=== PATIENT | male | born 1980 ===

== ENCOUNTER 2016-06-29 10:34 | Emergency (ER) | payer OTHER ==
[2016-06-29 10:41] VITALS: BP 114/65; PULSE 99; TEMP 98; O2SAT 98; BMI 31.8
--- NOTE | 2016-06-29 11:07 | ED PDOC ---
HPI: Eye Injury/Pain Time Seen by Provider: 06/29/16 10:55 Chief Complaint (Nursing): Eye Problem Chief Complaint (Provider): right eye irritation History Per: Patient History/Exam Limitations: no limitations Onset/Duration Of Symptoms: Days (x 7) Current Symptoms Are (Timing): Still Present Injury To Eye?: No Wears Contact Lens?: No Associated Symptoms: Itching. denies: Decreased Vision, Swelling, FB Sensation , Discharge From Eye Additional Complaint(s): Patient is a 35 year old male, with no previous medical history, who presents to the ED with complaints of right eye irritation ongoing for the past week. Pt reports eye feels itchy. Pt denies any use of contact lenses, self medicating to aleviate symptoms, trauma to the eye, fever, changes in vision or discharge. Pt states left eye is asymptomatic. PMD: none provided Past Medical History Reviewed: Historical Data Vital Signs: Last Vital Signs Temp 98 F 06/29/16 10:40 Pulse 99 H 06/29/16 10:40 Resp BP 114/65 06/29/16 10:40 Pulse Ox 98 06/29/16 10:40 - Medical History PMH: No Chronic Diseases - Surgical History Surgical History: No Surg Hx - Family History Family History: States: Diabetes - Social History Current smoker - smoking cessation education provided: Yes Alcohol: Social Drugs: Denies - Home Medications Home Medications: Ambulatory Orders Medication Instructions Recorded Polymyxin B Sulf/Trimethoprim 2 drop OD QID #1 bottle 06/29/16 [Polymyxin B-Tmp Eye Drops] - Allergies Allergies/Adverse Reactions: Allergies Allergy/AdvReac Type Severity Reaction Status Date / Time No Known Allergies Allergy Verified 06/29/16 10:49 Review of Systems ROS Statement: Except As Marked, All Systems Reviewed And Found Negative Constitutional: Negative for: Fever, Chills Eyes: Positive for: Redness (red eye), Other (right eye itchy ). Negative for: Vision Change, Eyelid Inflammation Physical Exam - Reviewed Nursing Documentation Reviewed: Yes Vital Signs Reviewed: Yes - Physical Exam Appears: Positive for: Well, Non-toxic, No Acute Distress Eye Exam: Positive for: EOMI, PERRL, Conjunctival injection (right eye mildly. left eye within normal limits ). Negative for: Periorbital swelling, Periorbital tenderness Cardiovascular/Chest: Positive for: Regular Rate, Rhythm Respiratory: Positive for: Normal Breath Sounds Neurologic/Psych: Positive for: Alert, Oriented - ECG O2 Sat by Pulse Oximetry: 98 (RA) Pulse Ox Interpretation: Normal Medical Decision Making Medical Decision Making: Initial Impression: Conjunctivitis Initial Plan: * physical exam * disposition Upon provider evaluation patient is medically stable, and requires no further treatment in the ED at this time. Patient will be discharged home with Rx for polytrim. Counseling was provided and all questions were answered regarding diagnosis and need for follow up with PMD. There is agreement to discharge plan. Return if symptoms persist or worsen. Scribe Attestation: Documented by Jaylin Ayers, acting as a scribe for Tom Hunter Jr., MD. Provider Scribe Attestation: All medical record entries made by the Scribe were at my direction and personally dictated by me. I have reviewed the chart and agree that the record accurately reflects my personal performance of the history, physical exam, medical decision making, and the department course for this patient. I have also personally directed, reviewed, and agree with the discharge instructions and disposition. Disposition - Clinical Impression Clinical Impression: Conjunctivitis - Patient ED Disposition Is Patient to be Admitted: No Doctor Will See Patient In The: Office Counseled Patient/Family Regarding: Studies Performed, Diagnosis, Need For Followup, Rx Given - Disposition Referrals: [facility] [Outside] Disposition: Routine/Home Disposition Time: 11:05 Condition: STABLE Additional Instructions: Mr. Ramirez, thank you for letting us take care of you today. Return to the ER if your symptoms worsen, or if any problems. Please call our [facility] ([facility]) to make a follow up appointment. If you are still symptomatic, they will refer you to an division order analyst (eye doctor). Take the medicine listed below as prescribed. Prescriptions: Polymyxin B Sulf/Trimethoprim [Polymyxin B-Tmp Eye Drops] 2 drop OD QID #1 bottle Instructions: Conjunctivitis (ED) Print Language: DIVEHI
== END 2016-06-29 11:35 | disposition home or self-care (01) ==
LOC: H.ER 10:34
DX: H10.9 Unspecified conjunctivitis (principal)